=== PATIENT | female | born 1975 | race Caucasian/White ===

== ENCOUNTER 2022-09-06 10:05 | Day surgery (SDC) | payer OTHER ==
[2022-08-31 16:34] VITALS: BMI 23.8
[2022-09-06 13:02] VITALS: RESP 18; TEMP 97
[2022-09-06 13:05] VITALS: BP 120/70; PULSE 74
== END 2022-09-06 13:06 | disposition home or self-care (01) ==
LOC: FASU-ENDO 10:05
PROVIDERS: ATTEND Internal Medicine Gastroenterology
PROC: 0DJD8ZZ Inspection of Lower Intestinal Tract, Via Natural or Artificial Opening Endoscopic (ICD-10-PCS; principal; 2022-09-06 11:59)
DX: Z12.11 Encounter for screening for malignant neoplasm of colon (principal); K64.1 Second degree hemorrhoids; K64.8 Other hemorrhoids; Z80.0 Family history of malignant neoplasm of digestive organs
CPT/HCPCS: 81025

== ENCOUNTER 2024-02-06 09:04 | Day surgery (SDC) | payer OTHER ==
[2024-01-31 15:21] VITALS: BMI 24.1
[2024-02-06 09:37] VITALS: RESP 18
[2024-02-06 11:19] VITALS: PULSE 82; TEMP 97.4
[2024-02-06 12:07] VITALS: BP 132/71
== END 2024-02-06 12:09 | disposition home or self-care (01) ==
LOC: FASU-ENDO 09:04
PROVIDERS: ATTEND Internal Medicine Gastroenterology
PROC: 0DJD8ZZ Inspection of Lower Intestinal Tract, Via Natural or Artificial Opening Endoscopic (ICD-10-PCS; principal; 2024-02-06 10:42)
DX: Z12.11 Encounter for screening for malignant neoplasm of colon (principal); K64.1 Second degree hemorrhoids; K64.8 Other hemorrhoids; K63.89 Other specified diseases of intestine; Z80.0 Family history of malignant neoplasm of digestive organs
CPT/HCPCS: 81025